=== PATIENT | female | born 1995 | race Caucasian/White ===

== ENCOUNTER 2020-07-21 04:51 | Emergency (ER) | payer OTHER ==
--- NOTE | 2020-07-21 05:21 | EDM.PDOC ---
ED HPI GENERAL MEDICAL PROBLEM - General Chief Complaint: Respiratory Problem Stated Complaint: HEAD COLD Time Seen by Provider: 07/21/20 05:01 Source of Information: Reports: Patient History Limitations: Reports: No Limitations - History of Present Illness INITIAL COMMENTS - FREE TEXT/NARRATIVE: Ms. Reyna is a very pleasant 25-year-old woman with no chronic medical problems, on no regular medicines, who now presents to the ED with a concern of a head cold, including nasal congestion, sinus pressure, chest heaviness, and some weakness, since this past 07/18/2020. No recent fever. She states that she coughs on occasion. She states that she felt some shortness of breath this morning. 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 The patient states that she has been taking DayQuil since the onset of her symptoms. The patient states that she has never been tested for the SARS-CoV-2 virus. Here in the ED, the patient is found to be hemodynamically stable, afebrile, saturating 98% on room air. Prior to 07/18/2020, the patient denies having a recent fever, chills, sore throat, ear pain, nasal or sinus congestion, cough, dyspnea, chest pain, palpitations, nausea, vomiting, constipation, diarrhea, abdominal pain, urinary symptoms, recent weight gain or weight loss, recent bloody bowel movements or black bowel movements, recent joint aches, headaches, or rashes. The patient does not have a PCP. She did not receive an influenza vaccine this season, and declined an offer to receive one here today. - Related Data Allergies Allergy/AdvReac Type Severity Reaction Status Date / Time No Known Allergies Allergy Verified 07/21/20 05:03 Home Meds: Home Meds . 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 ED EXAM, GENERAL - Physical Exam Exam: See Below Exam Limited By: No Limitations General Appearance: Alert, WD/WN, No Apparent Distress Eye Exam: Bilateral Eye: EOMI, Normal Inspection Ears: Normal External Exam, Normal Canal, Hearing Grossly Normal, Normal TMs Nose: Normal Inspection, Normal Mucosa, No Blood Throat/Mouth: Normal Inspection, Normal Lips, Normal Teeth, Normal Gums, Normal Oropharynx, Normal Voice, No Airway Compromise Head: Atraumatic, Normocephalic Neck: Normal Inspection, Supple, Non-Tender, Full Range of Motion. No: Lymphadenopathy (L), Lymphadenopathy (R) Respiratory/Chest: No Respiratory Distress, Lungs Clear, Normal Breath Sounds, No Accessory Muscle Use. No: Decreased Breath Sounds, Crackles, Rhonchi, Wheezing, Stridor, Prolonged Expiration Cardiovascular: Normal Peripheral Pulses, Regular Rate, Rhythm, No Edema, No Gallop, No JVD, No Murmur, No Rub Peripheral Pulses: 3+: Radial (L), Radial (R) GI/Abdominal: Normal Bowel Sounds, Soft, Non-Tender, No Organomegaly, No Distention, No Abnormal Bruit, No Mass Back Exam: Normal Inspection, Full Range of Motion, NT Extremities: Normal Inspection, Normal Range of Motion, No Pedal Edema, Normal Capillary Refill Neurological: Alert, Oriented, Normal Cognition, No Motor/Sensory Deficits Psychiatric: Normal Affect Skin Exam: Warm, Dry, Intact, Normal Color, No Rash Course - Vital Signs Last Recorded V/S: Last Vital Signs Temp 36.3 C 07/21/20 04:59 Pulse 78 07/21/20 04:59 Resp 16 07/21/20 04:59 BP 126/87 07/21/20 04:59 Pulse Ox 98 07/21/20 04:59 - Orders/Labs/Meds Orders: Active Orders 24 hr Category Date Time Status CORONAVIRUS COVID-19 PCR PHL Stat Lab 07/21/20 05:25 Received Isolation [COMM] Routine Oth 07/21/20 05:14 Ordered - Re-Assessments/Exams Free Text/Narrative Re-Assessment/Exam: 07/21/20 05:15 As above, the patient has had nasal congestion with sinus pressure, some chest heaviness, and generalized weakness, since 07/18/2020, with some dyspnea this morning. She is afebrile, saturating 90% on room air, and her physical exam is completely benign. The patient may be right, that she has a head cold. Less likely would be influenza, although I am recommending an influenza swab. Even less likely would be COVID-19, although I am recommending that we swab her for that, as well. Because she is saturating 90% on room air and her lungs are entirely clear to auscultation bilaterally. I am not recommending a chest x-ray or blood work at this time. The patient expressed understanding. 07/21/20 06:12 Test results discussed with the patient. Her influenza swab returned negative. I suspect that the patient is in fact suffering from a simple viral URI, although it is possible that she has coronavirus. She should receive the results within the next few days. I explained that if she test positive, she will need to strictly quarantine until she tests negative twice. The patient expressed understanding. Departure - Departure Time of Disposition: 06:13 Disposition: Home, Self-Care 01 Condition: Good Clinical Impression: Viral URI - Discharge Information *PRESCRIPTION DRUG MONITORING PROGRAM REVIEWED*: Not Applicable *COPY OF PRESCRIPTION DRUG MONITORING REPORT IN PATIENT MAYI: Not Applicable Referrals: PCP,None [Primary Care Provider] - Forms: ED Department Discharge Additional Instructions: You were seen in the emergency room for several days of nasal congestion with sinus pressure, chest heaviness, weakness, and some shortness of breath. Work-up in the ER included an influenza swab, and a swab for the SARS-CoV-2 virus. Your influenza swab returned negative. You should get the results of your swab for the SARS-CoV-2 virus within the next few days. Based on your history, physical exam, and ER tests, you are most likely suffering from a viral URI, also known as a common cold. Unfortunately, there are no medicines to treat a common cold - it will have to run its course. We do not recommend that you take any [id number] cough or cold remedies, as they have been shown to be of no benefit, but do have side effects, such as an upset stomach. If your swab for the SARS-CoV-2 virus returns positive, you will need to strictly quarantine until you tested negative, twice. If any other problems, please do not hesitate to return to the ER. Sepsis Event Note (ED) - Evaluation Sepsis Screening Result: No Definite Risk - Focused Exam Vital Signs: Vital Signs Temp Pulse Resp BP Pulse Ox 07/21/20 04:59 36.3 C 78 16 126/87 98 - My Orders Last 24 Hours: My Active Orders 07/21/20 05:14 Isolation [COMM] Routine 07/21/20 05:25 CORONAVIRUS COVID-19 PCR PHL Stat - Assessment/Plan Last 24 Hours: My Active Orders 07/21/20 05:14 Isolation [COMM] Routine 07/21/20 05:25 CORONAVIRUS COVID-19 PCR PHL Stat
== END 2020-07-21 06:21 | disposition home or self-care (01) ==
LOC: JD.ED 04:51
DX: U07.1 COVID-19 (principal); J06.9 Acute upper respiratory infection, unspecified
CPT/HCPCS: 87804; 99282; 99284; U0002

== ENCOUNTER 2021-03-23 08:52 | Emergency (ER) | payer OTHER ==
--- NOTE | 2021-03-23 09:16 | EDM.PDOC ---
ED HPI GENERAL MEDICAL PROBLEM - General Chief Complaint: Chest Pain Stated Complaint: CHEST TIGHTNESS/SOB Time Seen by Provider: 03/23/21 09:11 - History of Present Illness INITIAL COMMENTS - FREE TEXT/NARRATIVE: 25-year-old female presents the emergency room with chest pain. This started 2 days ago. She is not sure what causes this is not associated with her cough. It seems to be aggravated by wearing her vest at work. 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 This is not associated with any reflux no nausea no vomiting. Patient has not had problems like this in the past. . Patient does describes the pain as being substernal lower chest. Its not a spasm type pain and does not isolate to one side or the other. The pain never really seems to go away it is usually fairly mild and is exacerbated by activity and the patient thinks wearing a mask might make it a little worse. The patient denies any possibility of being . - Related Data Allergies Allergy/AdvReac Type Severity Reaction Status Date / Time No Known Allergies Allergy Verified 07/21/20 05:03 Home Meds: Home Meds Albuterol Sulfate [Albuterol Sulfate HFA] 8.5 gm INH Q4H PRN #1 ea 03/23/21 [Rx] Past Medical History HEENT History: Reports: Impaired Vision (wears glasses) Other HEENT History: wears glasses Respiratory History: Reports: Asthma Social & Family History - Family History Family Medical History: No Pertinent Family History - Caffeine Use Caffeine Use: Reports: None - Living Situation & Occupation Living situation: Reports: Single, Alone Occupation: Employed ([employer] ED ROS GENERAL - Review of Systems Review Of Systems: See Below Constitutional: Reports: No Symptoms. Denies: Fever, Chills HEENT: Reports: No Symptoms Respiratory: Reports: Shortness of Breath. Denies: Pleuritic Chest Pain, Cough, Sputum Cardiovascular: Reports: Chest Pain. Denies: No Symptoms Endocrine: Reports: No Symptoms GI/Abdominal: Reports: No Symptoms ED EXAM, GENERAL - Physical Exam Exam: See Below Exam Limited By: No Limitations General Appearance: Alert, No Apparent Distress Eye Exam: Bilateral Eye: Normal Inspection Ears: Normal External Exam, Normal Canal, Hearing Grossly Normal, Normal TMs Nose: Normal Inspection, Normal Mucosa, No Blood Throat/Mouth: Normal Inspection, Normal Lips, Normal Teeth, Normal Gums, Normal Oropharynx, Normal Voice, No Airway Compromise Head: Atraumatic, Normocephalic Neck: Normal Inspection, Supple, Non-Tender, Full Range of Motion. No: Lymphadenopathy (L), Lymphadenopathy (R) Respiratory/Chest: No Respiratory Distress, Lungs Clear, Normal Breath Sounds Cardiovascular: Regular Rate, Rhythm, No Edema, No Murmur Back Exam: Normal Inspection, Full Range of Motion. No: CVA Tenderness (L), CVA Tenderness (R) Neurological: Alert, Oriented, Normal Cognition #1 Interpretation EKG Date: 03/23/21 Rhythm: Other (Sinus irregularity age appropriate variant) Rate (Beats/Min): 55 [place]: Normal P-Wave: Present QRS: Other (Early transition) ST-T: Other (Early repolarization lateral) QT: Normal Comparison: NA - No Prior EKG EKG Interpretation Comments: Borderline EKG Course - Vital Signs Last Recorded V/S: Last Vital Signs Temp 36.5 C 03/23/21 09:05 Pulse 65 03/23/21 09:05 Resp 18 03/23/21 09:05 BP 136/77 03/23/21 09:05 Pulse Ox 100 03/23/21 09:05 - Orders/Labs/Meds Orders: Active Orders 24 hr Category Date Time Status EKG Documentation Completion [RC] ASDIRECTED Care 03/23/21 09:50 Active Sodium Chloride 0.9% [Normal Saline] 100 ml Med 03/23/21 10:30 Active IV ASDIRECTED Sodium Chloride 0.9% [Saline Flush] Med 03/23/21 10:29 Active 10 ml FLUSH ONETIME PRN EKG 12 Lead [EK] Stat Ther 03/23/21 09:49 Ordered Medication Orders Sodium Chloride (Normal Saline) 100 mls @ 75 mls/hr IV ASDIRECTED CIARA Last Admin: 03/23/21 10:45 Dose: 75 mls/hr Documented by: AHSAN Sodium Chloride (Sodium Chloride 0.9% 10 Ml Syringe) 10 ml FLUSH ONETIME PRN PRN Reason: IV FLUSH Last Admin: 03/23/21 10:45 Dose: 10 ml Documented by: Admin: 03/23/21 10:32 Dose: 10 ml Documented by: BOB Labs: Laboratory Tests 03/23/21 03/23/2121 Range/Units 09:35 09:35 09:35 WBC 5.37 (3.98-10.04) K/mm3 RBC 4.36 (3.98-5.22) M/mm3 Hgb 13.2 (11.2-15.7) gm/dl Hct 39.3 (34.1-44.9) % MCV 90.1 (79.4-94.8) fl MCH 30.3 (25.6-32.2) pg MCHC 33.6 (32.2-35.5) g/dl RDW Std Deviation 40.7 (36.4-46.3) fL Plt Count 238 (182-369) K/mm3 MPV 10.2 (9.4-12.3) fl Neut % (Auto) 58.6 (34.0-71.1) % Lymph % (Auto) 27.9 (19.3-51.7) % [place] % (Auto) 9.3 (4.7-12.5) % Eos % (Auto) 3.4 (0.7-5.8) Baso % (Auto) 0.6 (0.1-1.2) % Neut # (Auto) 3.15 (1.56-6.13) K/mm3 Lymph # (Auto) 1.50 (1.18-3.74) K/mm3 [place] # (Auto) 0.50 H (0.24-0.36) K/mm3 Eos # (Auto) 0.18 (0.04-0.36) K/mm3 Baso # (Auto) 0.03 (0.01-0.08) K/mm3 D-Dimer, Quantitative 0.92 H (0.19-0.50) mg/L Sodium 139 (136-145) mEq/L Potassium 4.2 (3.5-5.1) mEq/L Chloride 105 (98-107) mEq/L Carbon Dioxide 26 (21-32) mEq/L Anion Gap 12.2 (5-15) BUN 9 (7-18) mg/dL Creatinine 0.7 (0.55-1.02) mg/dL Est Cr Clr Drug Dosing 122.85 mL/min Estimated GFR (MDRD) > 60 (>60) mL/min BUN/Creatinine Ratio 12.9 L (14-18) Glucose 81 (70-99) mg/dL Calcium 8.3 L (8.5-10.1) mg/dL Total Bilirubin 0.5 (0.2-1.0) mg/dL AST 9 L (15-37) U/L ALT 17 (14-59) U/L Alkaline Phosphatase 65 (46-116) U/L Troponin I < 0.017 (0.00-0.056) ng/mL Total Protein 7.1 (6.4-8.2) g/dl Albumin 3.5 (3.4-5.0) g/dl Globulin 3.6 gm/dL Albumin/Globulin Ratio 1.0 (1-2) HCG, Qual (NEGATIVE) 03/23/21 Range/Units 09:35 WBC (3.98-10.04) K/mm3 RBC (3.98-5.22) M/mm3 Hgb (11.2-15.7) gm/dl Hct (34.1-44.9) % MCV (79.4-94.8) fl MCH (25.6-32.2) pg MCHC (32.2-35.5) g/dl RDW Std Deviation (36.4-46.3) fL Plt Count (182-369) K/mm3 MPV (9.4-12.3) fl Neut % (Auto) (34.0-71.1) % Lymph % (Auto) (19.3-51.7) % [place] % (Auto) (4.7-12.5) % Eos % (Auto) (0.7-5.8) Baso % (Auto) (0.1-1.2) % Neut # (Auto) (1.56-6.13) K/mm3 Lymph # (Auto) (1.18-3.74) K/mm3 [place] # (Auto) (0.24-0.36) K/mm3 Eos # (Auto) (0.04-0.36) K/mm3 Baso # (Auto) (0.01-0.08) K/mm3 D-Dimer, Quantitative (0.19-0.50) mg/L Sodium (136-145) mEq/L Potassium (3.5-5.1) mEq/L Chloride (98-107) mEq/L Carbon Dioxide (21-32) mEq/L Anion Gap (5-15) BUN (7-18) mg/dL Creatinine (0.55-1.02) mg/dL Est Cr Clr Drug Dosing mL/min Estimated GFR (MDRD) (>60) mL/min BUN/Creatinine Ratio (14-18) Glucose (70-99) mg/dL Calcium (8.5-10.1) mg/dL Total Bilirubin (0.2-1.0) mg/dL AST (15-37) U/L ALT (14-59) U/L Alkaline Phosphatase (46-116) U/L Troponin I (0.00-0.056) ng/mL Total Protein (6.4-8.2) g/dl Albumin (3.4-5.0) g/dl Globulin gm/dL Albumin/Globulin Ratio (1-2) HCG, Qual Negative (NEGATIVE) Meds: Medications Generic Name Dose Route Start Last Admin Trade Name Freq PRN Reason Stop Dose Admin Sodium Chloride 100 mls @ 75 mls/hr 03/23/21 10:30 03/23/21 10:45 Normal Saline IV 75 mls/hr ASDIRECTED CIARA Administration Sodium Chloride 10 ml 03/23/21 10:29 03/23/21 10:45 Sodium Chloride 0.9% 10 Ml Syringe FLUSH 10 ml ONETIME PRN Administration IV FLUSH Discontinued Medications Generic Name Dose Route Start Last Admin Trade Name Freq PRN Reason Stop Dose Admin Iopamidol 100 ml 03/23/21 10:29 03/23/21 10:45 Iopamidol 755 Mg/Ml 100 Ml Bottle IVPUSH 03/23/21 10:30 100 ml ONETIME ONE Administration - Re-Assessments/Exams Free Text/Narrative Re-Assessment/Exam: 03/23/21 10:13 D-dimer is positive rest the work-up is negative including 2 view chest. Discussed further work-up with the patient she agrees with checking a CTA this is been ordered awaiting serum hCG before going to CT. 03/23/21 11:30 hCG was negative patient had a CTA this was negative for any acute findings certainly no evidence of a pulmonary embolism anticipate discharge soon. Departure - Departure Time of Disposition: 11:34 Disposition: Home, Self-Care 01 Clinical Impression: Shortness of breath - Discharge Information Prescriptions: Albuterol Sulfate [Albuterol Sulfate HFA] 8.5 gm INH Q4H PRN #1 ea PRN Reason: Shortness Of Breath Instructions: Shortness of Breath, Adult, [id number] Referrals: PCP,None [Primary Care Provider] - Forms: ED Department Discharge Additional Instructions: Return to the emergency room with any questions problems or worsening symptoms. Follow-up in the hospital clinic later this week or next week for recheck. [phone] Use the albuterol inhaler 2 puffs every 4 hours while while awake as needed. Sepsis Event Note (ED) - Evaluation Sepsis Screening Result: No Definite Risk - Focused Exam Vital Signs: Vital Signs Temp Pulse Resp BP Pulse Ox 03/23/21 09:05 36.5 C 65 18 136/77 100 - My Orders Last 24 Hours: My Active Orders 03/23/21 09:49 EKG 12 Lead [EK] Stat 03/23/21 09:50 EKG Documentation Completion [RC] ASDIRECTED 03/23/21 10:29 Sodium Chloride 0.9% [Saline Flush] 10 ml FLUSH ONETIME PRN 03/23/21 10:30 Sodium Chloride 0.9% [Normal Saline] 100 ml IV ASDIRECTED - Assessment/Plan Last 24 Hours: My Active Orders 03/23/21 09:49 EKG 12 Lead [EK] Stat 03/23/21 09:50 EKG Documentation Completion [RC] ASDIRECTED 03/23/21 10:29 Sodium Chloride 0.9% [Saline Flush] 10 ml FLUSH ONETIME PRN 03/23/21 10:30 Sodium Chloride 0.9% [Normal Saline] 100 ml IV ASDIRECTED
[2021-03-23] MEDS ORDERED: Iopamidol 755 Mg/ML 100 ML Bottle IVPUSH ONE (10:29)
[2021-03-23] MEDS ORDERED: Sodium Chloride 0.9% 100 ML IV SCH (10:30)
[2021-03-23] MEDS: Sodium Chloride 0.9% 10 ML Syringe FLUSH PRN ×2 (10:32→10:45)
--- NOTE | 2021-03-23 11:06 | CT ---
CT chest Technique: Multiple axial sections through the chest were obtained. Intravenous contrast was utilized. Study has been performed as a pulmonary angiogram protocol. Comparison: No prior chest CT study, prior chest x-ray performed earlier on the same day (9:37 AM). Findings: Pulmonary arteries are well opacified. No filling defects are seen to indicate pulmonary embolism. Thoracic aorta shows no aneurysm. Mediastinum show no adenopathy. No axillary adenopathy is seen. Lungs are clear with no acute parenchymal change. Left lung base shows a very minimal pleural-based nodule which I believed is incidental. Bone window settings were reviewed which show no acute osseous finding. Visualized upper abdominal structures show no discrete abnormality. Impression: 1. No findings of pulmonary embolism. 2. Nothing acute is seen on CT study of the chest. Diagnostic code #1
--- NOTE | 2021-03-23 11:09 | CR ---
Chest: 2 views of the chest were obtained. Comparison: Prior chest x-ray of 04/06/19. Heart size and mediastinum are normal. Lungs are clear with no acute parenchymal change. Bony structures appear within normal limits. Impression: 1. Nothing acute is appreciated on two-view chest x-ray. Diagnostic code #1
== END 2021-03-23 11:50 | disposition home or self-care (01) ==
LOC: JD.ED 08:52
DX: R06.02 Shortness of breath (principal)
CPT/HCPCS: 36415; 71046; 71275; 80053; 84484; 84703; 85025; 85379; 93005; 99285; Q9967; 93010; 99284